=== PATIENT | female | born 1985 | race Two or more races ===

== ENCOUNTER 2020-06-01 21:25 | Emergency (ER) | payer BC ==
[2020-06-01 21:44] VITALS: BMI 29.8
[2020-06-01] MEDS ORDERED: ACETAMINOPHEN 500 MG TABLET (FP) PO ONE (21:51)
--- NOTE | 2020-06-01 21:52 | PDOC ---
History of Present Illness - General Chief Complaint: Pain Stated Complaint: 12 WEEKS /ABDOMINAL PAIN Time Seen by Provider: 06/01/20 21:48 History Source: Patient - History of Present Illness Timing/Duration: reports: constant, getting worse Abdominal Pain Onset Location: reports: suprapubic Past History - Medical History Allergies/Adverse Reactions: Allergies Allergy/AdvReac Type Severity Reaction Status Date / Time No Known Allergies Allergy Verified 06/01/20 21:44 COPD: No Other medical history: ovarian cyst - Reproductive History Is Patient Now?: Yes - Psycho-Social/Smoking History Smoking History: Never smoked - Substance Abuse Hx (Audit-C & DAST Scrn) How often the patient has a drink containing alcohol: Never Score: In Men: 4 or > Positive; In Women: 3 or > Positive: 0 Screen Result (Pos requires Nsg. Audit-10AR): Negative In the last yr the pt used illegal drug/Rx for NonMed reason: No Score: Yes response is considered Positive: 0 Screen Result (Positive result requires Nsg. DAST-10): Negative Review of Systems - Review of Systems Constitutional: No: Fever ABD/GI: Yes: Abdominal cramping. No: Nausea, Vomiting : No: Dysuria, Flank Pain, Hematuria *Physical Exam - Vital Signs Last Vital Signs Temp Pulse Resp BP Pulse Ox 97.8 F 87 19 110/76 99 06/01/20 21:41 06/01/20 21:41 06/01/20 21:41 06/01/20 21:41 06/01/20 21:41 - Physical Exam General Appearance: Yes: Appropriately Dressed, Mild Distress HEENT: positive: Normal Voice Neck: positive: Supple Respiratory/Chest: negative: Respiratory Distress Gastrointestinal/Abdominal: positive: Normal Bowel Sounds, Tender (diffusely to suprapubix, NT over mcburneys), Soft. negative: Distended, Guarding, Rebound Musculoskeletal: negative: CVA Tenderness Integumentary: positive: Dry, Warm Neurologic: positive: Fully Oriented, Alert, Normal Mood/Affect Medical Decision Making - Medical Decision Making 06/01/20 21:49 35 yo F, , ~12 weeks by dates, with confirmed IUP on ultrasound over 3 weeks ago w/ no issues in so far, here with lower abdominal cramping for 3 days that worsened last night. Has not taken anything for pain. No vaginal bleeding dysuria nausea vomiting fever or chills see exam Abd pain in 1st trimester w/ confirmed IUP No vag bleed or dysuria -pain control -ua/cx -US 06/01/20 21:57 06/01/20 22:[address] Sarmiento pending US read. UA clean Discharge - Discharge Information Problems reviewed: Yes Clinical Impression/Diagnosis: Abdominal pain affecting Condition: Good Disposition: HOME - Follow up/Referral Referrals: Viviana Lee MD [Primary Care Provider] - - Patient Discharge Instructions Patient Printed Discharge Instructions: DI for Abdominal Pain -- Early Additional Instructions: You were seen in the ED for complaints of abdominal pain In the ED you were evaluated with transvaginal ultrasound, urine analysis. Your results were negative There does not appear to be an acute need for immediate hospitalization. You are advised to follow up with your egg pasteurizer doctor (Judith Lee) within 1 week. Return to the ED immediately if you experience worsening abdominal pain, vaginal bleeding, or new symptoms. - Post Discharge Activity
[2020-06-01] MEDS ORDERED: ACETAMINOPHEN 325 MG TABLET (FP) ONE (21:53)
[2020-06-01 22:19] LABS: URINE APPEARANCE CLOUDY; URINE BILIRUBIN NEGATIVE (NEGATIVE); URINE COLOR YELLOW; URINE GLUCOSE (UA) NEGATIVE (NEGATIVE); URINE KETONE NEGATIVE (NEGATIVE); URINE LEUK ESTERASE NEGATIVE (NEGATIVE); URINE NITRITE NEGATIVE (NEGATIVE); URINE PROTEIN NEGATIVE (NEGATIVE)
--- NOTE | 2020-06-01 22:43 | PDOC ---
*Physical Exam - Vital Signs Last Vital Signs Temp Pulse Resp BP Pulse Ox 97.8 F 87 19 110/76 99 06/01/20 21:41 06/01/20 21:41 06/01/20 21:41 06/01/20 21:41 06/01/20 21:41 - Physical Exam 06/01/20 22:58 sign out was given by ORNAMENTAL IRON WORKER APPRENTICE. Awaiting the result of the ultrasound. ED Treatment Course - ADDITIONAL ORDERS Additional order review: Laboratory Results 06/01/20 22:04 Urine Color Yellow Urine Appearance Cloudy Urine pH 6.0 Ur Specific [place] 1.023 Urine Protein Negative Urine Glucose (UA) Negative Urine Ketones Negative Urine Blood Negative Urine Nitrite Negative Urine Bilirubin Negative Urine Urobilinogen 1.0 Ur Leukocyte Esterase Negative - Medications Given in the ED: ED Medications Discontinued Medications Generic Name Dose Route Start Last Admin Trade Name Guilleq PRN Reason Stop Dose Admin Acetaminophen 1,000 mg 06/01/20 21:51 06/01/20 22:02 Tylenol - PO 06/01/20 21:52 1,000 mg ONCE ONE Administration Medical Decision Making - Medical Decision Making 06/01/20 23:29 Transvaginal ultrasound showed Enlarged gravid uterus with single live intrauterine gestation. heart rate 150 bpm. Approximate age of 12 weeks, 4 days by mean crown-rump length of 6.02 cm. Amniotic fluid volume appears adequate. Placenta is developing posteriorly Patient is stable to discharge and follow up with DISTRIBUTION ENGINEERING TECHNOLOGIST Judith Lee. Tylenol for pain control. Discharge - Discharge Information Problems reviewed: Yes Clinical Impression/Diagnosis: Abdominal pain affecting Condition: Good Disposition: HOME - Follow up/Referral - Patient Discharge Instructions Patient Printed Discharge Instructions: DI for Abdominal Pain -- Early Additional Instructions: You were seen in the ED for complaints of abdominal pain In the ED you were evaluated with transvaginal ultrasound, urine analysis. Your results were negative There does not appear to be an acute need for immediate hospitalization. You are advised to follow up with your junior mechanical engineer doctor (Judith Lee) within 1 week. Return to the ED immediately if you experience worsening abdominal pain, vaginal bleeding, or new symptoms. - Post Discharge Activity
[2020-06-01 23:48] VITALS: BP 103/65; PULSE 79; TEMP 97.9
== END 2020-06-01 23:48 | disposition home or self-care (01) ==
LOC: JER 21:25
DX: O26.891 Other specified pregnancy related conditions, first trimester (principal); R10.9 Unspecified abdominal pain; Z3A.12 12 weeks gestation of pregnancy
CPT/HCPCS: 76817-TC; 81003; 87086; 99284-25

== ENCOUNTER 2020-09-26 15:46 | Emergency (ER) | payer BC ==
[2020-09-26 16:25] VITALS: BP 133/75; PULSE 90; TEMP 98.2; BMI 31.9
[2020-09-26 17:44] LABS: BASO % 0.9 % (0-2.0); EOS % 0.3 % (0-4.5); HEMATOCRIT 38.3 % (32.4-45.2); LYMPH % 25.9 % (8-40); MCH 30.6 pg (25.7-33.7); MCHC 33.9 g/dl (32.0-36.0); MEAN PLT VOLUME 9.7 fl (7.5-11.1); MONO % 6.1 % (3.8-10.2); NEUT % 66.8 % (42.8-82.8); PLATELET COUNT 194 K/MM3 (134-434); RBC 4.26 M/mm3 (3.60-5.2); RDW 14.7 % (11.6-15.6); WHITE BLOOD COUNT 6.8 K/mm3 (4.0-10.0)
[2020-09-26 17:52] LABS: INR 1.08 (0.83-1.09)
[2020-09-26 18:06] LABS: URINE APPEARANCE Clear; URINE BILIRUBIN Negative (NEGATIVE); URINE COLOR Yellow; URINE GLUCOSE (UA) Negative (NEGATIVE); URINE KETONE Trace (NEGATIVE); URINE LEUK ESTERASE Negative (NEGATIVE); URINE NITRITE Negative (NEGATIVE); URINE PROTEIN Negative (NEGATIVE); URINE UROBILINOGEN 0.2 mg/dL (0.2-1.0)
[2020-09-26 18:09] LABS: CALCIUM 8.9 mg/dL (8.5-10.1)
[2020-09-26 18:10] LABS: ALBUMIN 2.7 g/dl (3.4-5.0); BLOOD UREA NITROGEN 4.9 mg/dL (7-18)
[2020-09-26 18:13] LABS: CREATININE 0.6 mg/dL (0.55-1.3)
[2020-09-26 18:15] LABS: BILIRUBIN,TOTAL 0.2 mg/dL (0.2-1); TOT PROT 6.6 g/dl (6.4-8.2)
[2020-09-26] MEDS ORDERED: ACETAMINOPHEN 325 MG TABLET (FP) PO ONE (18:31)
[2020-09-26] MEDS ORDERED: ACETAMINOPHEN 325 MG TABLET (FP) ONE (18:49)
== END 2020-09-26 18:55 | disposition home or self-care (01) ==
LOC: JER 15:46
DX: H11.32 Conjunctival hemorrhage, left eye (principal)
CPT/HCPCS: 36415; 80053; 81003; 85025; 85610; 87086; 99284-25

== ENCOUNTER 2020-12-06 06:45 | Inpatient (IN) | payer BC ==
[2020-12-06] MEDS ORDERED: ONDANSETRON 4 MG/2 ML VIAL IVPUSH PRN (08:02)
[2020-12-06] MEDS ORDERED: CITRIC ACID/SODIUM CITRATE 30 ML UNIT-DOSE CUP PO ONE (08:03)
[2020-12-06] MEDS ORDERED: WITCH HAZEL 50% (TUCKS) 40 PAD/JAR PAD TP PRN (08:04)
[2020-12-06] MEDS ORDERED: diphenhydrAMINE HCL 25 MG CAPSULE (FP) PO PRN (08:04)
[2020-12-06] MEDS ORDERED: BENZOCAINE 28 GM HEMORRHOIDAL OINTMENT TP PRN (08:04)
[2020-12-06] MEDS ORDERED: METHYLERGONOVINE MALEATE 0.2 MG/1 ML AMP IM PRN (08:04)
[2020-12-06] MEDS ORDERED: IBUPROFEN 600 MG TABLET (FP) PO PRN (08:04)
[2020-12-06] MEDS ORDERED: BENZOCAINE 20% 57 GM BOTTLE TP PRN (08:04)
[2020-12-06] MEDS ORDERED: morphine SULFATE/Preservative Free 0.5 MG/ML (1cc Syringe) ONE (08:12)
[2020-12-06] MEDS ORDERED: ELECTROLYTE-148 SOLN 1,000 ML IV SCH (08:15)
[2020-12-06] MEDS ORDERED: ceFAZolin SODIUM 1 GM VIAL ONE (08:26)
[2020-12-06] MEDS ORDERED: ePHEDrine SULFATE 50 MG/1 ML AMPULE ONE (08:32)
[2020-12-06] MEDS ORDERED: OXYTOCIN 10 UNITS/ML VIAL ONE (08:39)
[2020-12-06] MEDS ORDERED: ONDANSETRON 4 MG/2 ML VIAL ONE (08:40)
[2020-12-06] MEDS ORDERED: PHENYLEPHRINE HCL 10 MG/1 ML SINGLE DOSE VIAL ONE (08:40)
[2020-12-06 08:55] VITALS: BMI 34.2
[2020-12-06 09:32] LABS: CORD HCO3 23.7 mmHg (20-29); CORD pH 7.214 (7.14-7.44)
[2020-12-06] MEDS ORDERED: OXYTOCIN 20 UNITS in 0.9% NS 20 UNIT/1,000 ML INFUS.BAG IV ONE (10:03)
[2020-12-06] MEDS: IBUPROFEN 800 MG/8 ML IJ IVPB PRN ×2 (11:30→21:43)
[2020-12-07] MEDS: IBUPROFEN 800 MG/8 ML IJ IVPB PRN (05:40)
[2020-12-07] MEDS ORDERED: HYDROmorphone HCL 2 MG TABLET PO PRN (08:04)
[2020-12-07] MEDS ORDERED: BISACODYL 10 MG SUPP.RECT PR PRN (08:04)
[2020-12-07 09:07] LABS: HEMOGLOBIN 12.8 GM/dL (10.7-15.3); MCH 29.9 pg (25.7-33.7); MCHC 32.8 g/dl (32.0-36.0); MEAN PLT VOLUME 10.3 fl (7.5-11.1); PLATELET COUNT 141 K/MM3 (134-434); RBC 4.28 M/mm3 (3.60-5.2); RDW 15.3 % (11.6-15.6); WHITE BLOOD COUNT 7.8 K/mm3 (4.0-10.0)
[2020-12-07] MEDS: SIMETHICONE 80 MG TAB.CHEW (FP) PO PRN ×3 (11:13→21:32)
[2020-12-07] MEDS: oxyCODONE HCL 5 MG TABLET PO PRN ×3 (11:13→21:31)
[2020-12-07] MEDS: ACETAMINOPHEN 325 MG TABLET (FP) PO PRN ×3 (11:14→21:32)
[2020-12-07 21:56] VITALS: BP 113/67
[2020-12-08] MEDS: oxyCODONE HCL 5 MG TABLET PO PRN (07:47)
[2020-12-08 11:02] VITALS: PULSE 106; TEMP 97.5
[2020-12-08] MEDS ORDERED: SENNOSIDES/DOCUSATE COMBO (SENNA PLUS) TABLET (UD) PO PRN (22:00)
== END 2020-12-08 12:00 | disposition home or self-care (01) | DRG 788 ==
LOC: JLDR 06:45 → J3W 10:35
PROVIDERS: ADMIT Obstetrics & Gynecology; ATTEND Obstetrics & Gynecology
PROC: 10D00Z1 Extraction of Products of Conception, Low, Open Approach (ICD-10-PCS; principal; 2020-12-06)
DX: O34.219 Maternal care for unspecified type scar from previous cesarean delivery (principal); O99.824 Streptococcus B carrier state complicating childbirth; Z3A.39 39 weeks gestation of pregnancy; Z37.0 Single live birth
CPT/HCPCS: 36415; 36600; 82803; 85027; 85461; 86999; 88307-TC